=== PATIENT | female | born 1935 | race Caucasian/White ===

== ENCOUNTER 2025-06-24 09:47 | Outpatient (AMB) | payer MEDICAID, SELFPAY ==
--- NOTE | 2025-06-24 09:50 | A.OFFPC_ITS ---
Vital Signs 06/24/25 10:05 Height 5 ft 2 in Weight 186 lb BMI 34.0 BP 138/76 Blood Pressure Location Lt brachial Position Sitting Respiration 12 Pulse 91 Pulse Source Pulse Oximeter Temp 97.2 F Temp Source Oral Pulse Oximetry (%) 99 Oxygen Delivery Method Room Air Intake Visit Reasons: not walking Intake Note: New patient to establish care. Patient is looking for medical supply. Wastewater Project Engineer Required: Yes Wastewater Project Engineer Language: Greek Wastewater Project Engineer Name: Jori [id number] Allergies No Known Allergies Allergy (Verified 06/24/25 10:08) Medication List - Last Reconciled 06/24/25 by Kristal Nascimento, AUDIOLOGY TECHNICIAN-BC apixaban (Eliquis) 2.5 mg PO BID bisoprolol fumarate 5 mg PO DAILY sacubitril-valsartan 49-51 mg 1 tab PO BID Tobacco use date assessed: 06/24/25 Fall risk assessment: 2 + Falls in past year Last assessed Fall Risk: 06/24/25 Dental Screening Dental Screen Date: 06/24/25 Did you have a dental visit in the last 12 months?: No Did you have a dental problem in the last 6 months where you did not have access to dental care?: No Was dental information given to patient?: Patient declined HPI HPI Comments History of Present Illness Details [id number] Greek Wastewater Project Engineer: History of Present Illness - The patient is an 89-year-old female p resenting with the need to establish care post-relocation. Brings in records; however they are in Greek. Here to day with Son in law and Dtr - History of R femur and knee fracture r eported; 1 year ago - caused shortening. She is now wheelchair bound. Has never had treatment; does have a disc with some imaging from 2023. - Hearing difficulties and hearing aids usage but they are not working; referral to a survival specialist requested. - Based on med list has CHF and Afib. De nies cardiac complaints today. - Limited mobility & urinary incont: ne eds DME supplies. - PHQ and LUDY + Has known MDD and LUDY . Not on meds; declined help. Review of Systems - Musculoskeletal: Reports hip fracture, pain, and swelling in knee and hip. - Auditory: Reports hearing difficulties , uses hearing aids. - Cardiovascular: Reports heart issues. - Endocrine: Denies any weakness, fainti ng, or passing out episodes. Exam Seated in w/c accompanied by dtr and son in law Awake, FELY ESCALANTE Irregularly irregular CTAB, mildly dim +1-2 edema BLE Unable to appreciate pedal pulses Discussion Notes I discussed with the patient and her son-in-law about establishing care following her recent relocation. We addressed her concerns related to past medical issues, including hip fracture, hearing difficulties, and cardiac issues, all requiring specialist consultations. I advised the son-in-law about arranging referral appointments with an photographic specialist, a survival specialist, and a store promoter within our hospital system. We talked extensively about managing her medication refills at her preferred pharmacy and getting her baseline lab work done to enable continued appropriate care. The need for upd ated imaging and establishing care with new specialists was communicated clearly. Both the patient and her family were informed about the process to follow and were agreeable to the plan. I ensured they knew how to get assistance if needed during the lab and checkout process with an character impersonator provided. Assessment and Plan 1. Reported R femur and knee fracture - Orthopedic referral for evaluation and imaging. 2. Hearing difficulties - Consultation with a survival specialist . 3. Afib/CHF - Cardiology consultation for further ev aluation. - Cont all meds as is; unsure why she is on 2.5mg of eliquis and not 5mg. Will defer to Cards on this. 4. Medication refills - Process refills at [facility]. - All meds sent. 5. Blood work - Conduct baseline laboratory tests. to be done done. 6. DME supply request sent to nurses 7. MDD/LUDY monitor Patient Instructions - Attend referred consultations with a h ip/knee specialist, a heart doctor, and a hearing doctor. - occupational therapy director prescription refills at [facility], R margareterdaminh. - Complete lab work before leaving the ospital today. - Call us promptly if you have questions or need more help. - Ask for results to be mailed; declined use of portal. RTO 6 MONTHS SAWV, SOONER PRN Consent Patient was informed and verbally consented to the use of an ambient scribe for clinic note documentation during this visit. Total time spent caring for the patient today was 61 minutes. This includes time spent before the visit reviewing the chart, time spent during the visit, and time spent after the visit on documentation, reviewing laboratory results, diagnostic imaging, medications, performing a medically necessary evaluation, counseling on diagnoses, care coordination, ordering appropriate tests, ordering appropriate medications, review of tests performed by other providers, reporting test results with the patient, communication with other healthcare providers. [facility] Medical History (Updated 06/24/25 @ 10:47 by Kristal Nascimento, [facility]) Depression Headache Heart disease Imbalance Memory loss Osteoporosis Surgical History (Updated 06/24/25 @ 10:36 by Sukumar Salazar MA) No pertinent past surgical history Family History (Updated 06/24/25 @ 10:36 by Sukumar Salazar MA) Mother HTN (hypertension) Father HTN (hypertension) Cardiovascular disease Social History (Updated 06/24/25 @ 09:51 by Sukumar Salazar MA) Household Members: Family Housing: House Are you a primary animal daycare provider to a significant other at home: No Do you presently have visiting nurse or other home services: No Alcohol intake: never Patient Tobacco Use Status: Never used Tobacco e-Cigarette/Vaping Use: Never Used Second Hand Smoke Exposure: No service: No Current occupational status: retired Cognitive needs: Yes Hearing needs: Yes (hearing aide) Vision needs: Yes (eye surgery ) Questionnaire PHQ-9 Over the last 2 weeks, how often have you been bothered by any of the following problems? 1. Little interest or pleasure in doing things: nearly every day 2. Feeling down, depressed, or hopeless: not at all 3. Trouble falling or staying asleep, or sleeping too much: not at all 4. Feeling tired or having little energy: nearly every day 5. Poor appetite or overeating: more than half the days 6. Feeling bad about yourself - or that you are a failure or have let yourself or your family down: nearly every day 7. Trouble concentrating on things, such as reading the newspaper or watching television: more than half the days 8. Moving or speaking so slowly that other people could have noticed. Or the opposite - being so fidgety or restless that you have been moving around a lot more than usual: nearly every day 9. Thoughts that you would be better off or of hurting yourself in some way: not at all Total score: 16 Depression Screening Interpretation: Positive Depression Screening Follow-up: Existing condition and Declines treatment Depression Screening Done: Yes [id number] - PHQ-9 Billing: Yes Source: Developed by Drs. Se Thacker, Yeni Nevarez, Guzman Coronado and colleagues, with an educational mya from [employer]. Thrive Questionnaire Date Thrive assessed: 06/24/25 I am a: Patient What is your living situation today?: I choose not to answer this question Within the past 12 months, did the food you bought not last and you didn't have the money to get more?: I choose not to answer this question Within the past 12 months, did you worry whether your food would run out before you got money to buy more?: I choose not to answer this question Do you have trouble paying for medicines?: Yes Do you have trouble getting transportation to medical appointments?: Yes Do you have trouble paying your heating and electricity bill?: Yes Do you have trouble taking care of your child, family member or friend?: Yes Do you have trouble with day-to-day activities such as bathing, preparing meals, shopping, managing finances, etc.?: Yes Are you currently unemployed and looking for a job?: I choose not to answer this question Are you interested in more education?: I choose not to answer this question Please select the resources that you would like help with: Food, Paying for medicine, Transportation, Utilities, Care for elder or disabled and Daily support Currently or been in a relationship where the following occur: I choose not to answer THRIVE Score: 2 AUDIT C Alcohol Use Questionnaire (AUDIT-C) 1. How often do you have a drink containing alcohol?: Never 3. How often do you have six or more drinks on one occasion?: Never Total Score: 0 Score Reviewed/Action Taken: Yes LUDY-7 AMB Questionnaire LUDY-7 Date LUDY - 7 assessed: 06/24/25 Feeling nervous, anxious, or on edge: 1 = Several days Not being able to stop or control worryin = Several days Worrying too much about different things: 3 = Nearly every day Trouble relaxin = More than half the days Being so restless that it is hard to sit still: 1 = Several days Becoming easily annoyed or irritable: 2 = More than half the days Feeling afraid as if something awful might happen: 2 = More than half the days Total LUDY-7 score (0-4 normal; 5-9 mild; 10-14 moderate; 15-21 severe): 12 Source: Developed by Drs. Se Thacker, Yeni Nevarez, Guzman Coronado and colleagues, with an educational mya from [employer]. LUDY-7 Assessment Billing LUDY-7 Assessment Tool: LUDY-7 Assessment 04119 Physical exam (Primary Care) Vital Signs: Last Vital Signs Temp 97.2 F 06/24/25 10:05 Pulse 91 06/24/25 10:05 Resp 12 06/24/25 10:05 BP 138/76 06/24/25 10:05 Pulse Ox 99 06/24/25 10:05 Oxygen Delivery Method Room Air 06/24/25 10:05 BMI result Body Mass Index 34.0 Tobacco/Smoking Status: Tobacco use Status Tobacco use date assessed 06/24/25 06/24/25 09:55 Patient Tobacco Use Status Never used Tobacco 06/24/25 09:55 e-Cigarette/Vaping Use Never Used 06/24/25 09:55 PHQ-9: PHQ-9 Score PHQ-9: Total score 16 06/24/25 10:15 Depression Screening Interpretation: Positive Depression Screening Follow-up: Existing condition and Declines treatment Thrive Assessment: Date of Thrive Assessment Date Thrive assessed 06/24/25 06/24/25 09:55 Currently or been in a relationship where the following occur: I choose not to answer Coding Level of Care Code New Pt Level 5 (04186) Complex EM visit Add On G2211 Diagnoses Encounter to establish care Z76.89 Right femoral fracture S72.91XA Encounter type: sequela Femur location: unspecified portion of femur Fracture type: closed Chronic congestive heart failure, unspecified heart failure type I50.9 Heart failure type: unspecified Heart failure chronicity: chronic 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 Hearing loss type: sensorineural Laterality: bilateral Chronic pain of right knee M25.561; G89.29 Chronicity: chronic Obesity (BMI 30-39.9) E66.9 Atrial fibrillation, unspecified type I48.91 Atrial fibrillation type: unspecified 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 Urinary Incontinence type: mixed stress and urge incontinence Language barrier Z60.3; Z75.8 Physical deconditioning R53.81 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 Major depression episode severity: moderate LDUY (generalized anxiety disorder) F41.1 Laboratory exam ordered as part of routine general medical examination Z00.00 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 Additional Codes LUDY-7 Assessment Billing - LUDY-7 Assessment Tool: LUDY-7 Assessment [id number] ([id number]) PHQ-9 - 08464 - PHQ-9 Billing: Yes ([id number]) Assessment & Plan Assessment & Plan (1) Encounter to establish care: Code(s): Z76.89 - Persons encountering health services in other specified circumstances (2) Right femoral fracture: Code(s): S72.91XA - Unspecified fracture of right femur, initial encounter for closed fracture Category: Medical Qualifiers: Encounter type: sequela Femur location: unspecified portion of femur Fracture type: closed (3) CHF (congestive heart failure): Code(s): I50.9 - Heart failure, unspecified Category: Medical Qualifiers: Heart failure type: unspecified Heart failure chronicity: chronic Qualified Code(s): I50.9 - Heart failure, unspecified (4) Hearing loss: Code(s): H91.90 - Unspecified hearing loss, unspecified ear Category: Medical Qualifiers: Hearing loss type: sensorineural Laterality: bilateral Qualified Code(s): H90.3 - Sensorineural hearing loss, bilateral (5) Right knee pain: Code(s): M25.561 - Pain in right knee Category: Medical Qualifiers: Chronicity: chronic Qualified Code(s): M25.561 - Pain in right knee; G89.29 - Other chronic pain (6) Obesity (BMI 30-39.9): Code(s): E66.9 - Obesity, unspecified Category: Medical (7) Afib: Code(s): I48.91 - Unspecified atrial fibrillation Category: Medical Qualifiers: Atrial fibrillation type: unspecified Qualified Code(s): I48.91 - Unspecified atrial fibrillation (8) Urinary incontinence: Code(s): R32 - Unspecified urinary incontinence Category: Medical Qualifiers: Urinary Incontinence type: mixed stress and urge incontinence Qualified Code(s): N39.46 - Mixed incontinence (9) Language barrier: Code(s): Z60.3 - Acculturation difficulty; Z75.8 - Other problems related to medical facilities and other health care Category: Social Hx (10) Physical deconditioning: Code(s): R53.81 - Other malaise Category: Medical (11) MDD (major depressive disorder), recurrent episode: Code(s): F33.9 - Major depressive disorder, recurrent, unspecified Category: Medical Qualifiers: Major depression episode severity: moderate Qualified Code(s): F33.1 - Major depressive disorder, recurrent, moderate (12) LUDY (generalized anxiety disorder): Code(s): F41.1 - Generalized anxiety disorder Category: Medical (13) Laboratory exam ordered as part of routine general medical examination: Code(s): Z00.00 - Encounter for general adult medical examination without abnormal findings Category: Medical (14) Secondary hypercoagulable state: Comment: d/t AFib on eliquis Code(s): D68.69 - Other thrombophilia Category: Medical (15) 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 Orders: Orders Complete Blood Count no Diff Today Z00.00 - Encounter for general adult medical examination without abnormal findings Comprehensive Met. Panel Today Z00.00 - Encounter for general adult medical examination without abnormal findings Hemoglobin A1c Today Z00.00 - Encounter for general adult medical examination without abnormal findings Lipid Panel Today Z00.00 - Encounter for general adult medical examination without abnormal findings Vitamin B12 and Folate Today Z00.00 - Encounter for general adult medical examination without abnormal findings TSH reflex Free T4 Today Z00.00 - Encounter for general adult medical examination without abnormal findings Vitamin D 25-OH Total Today Z00.00 - Encounter for general adult medical examination without abnormal findings XR hip RT w PEL1V Today M25.561 - Pain in right knee, S72.91XA - Unspecified fracture of right femur, initial encounter for closed fracture XR knee RT 4V Today M25.561 - Pain in right knee, S72.91XA - Unspecified fracture of right femur, initial encounter for closed fracture Referrals Cardiology Referral I50.9 - Heart failure, unspecified Audiology Referral H91.90 - Unspecified hearing loss, unspecified ear Orthopedics Referral S72.91XA - Unspecified fracture of right femur, initial encounter for closed fracture Medications: New apixaban (Eliquis) 2.5 mg PO BID 180 tabs 0RF bisoprolol fumarate 5 mg PO DAILY 90 tabs 0RF sacubitril-valsartan 49-51 mg 1 tab PO BID 90 tabs 0RF torsemide 5 mg PO DAILY 90 tabs 0RF Patient Instructions: Walk-In Care (Urgent Care): We Make it Easy Walk-in for urgent medical issues such as: ? Seasonal Allergies ? Insect Bites ? Cough ? Diarrhea ? Acute Asthma Attacks ? Back, Knee or Joint Pain ? Ear Infection ? Fever without a Rash ? Headaches ? Nausea ? [place], Rash or Skin Irritation ? Sore Throat ? Sports Physicals ? Vomiting Most insurances are accepted. Patients do not need to be part of the [facility] to seek care at the walk-in clinic. Locations [facility] , [place] [address] ? [phone] [facility] Walk-In Care in [place] provides services to ages 18 and over. Open Friday-Friday: 8 a.m. to 5 p.m. and Friday: 9 a.m. to 3 p.m.* *Hours may vary due to staffing availability. To confirm Walk-In Care hours in [place], please call [phone]. [address] [place] [address] ? [phone] [facility] Walk-In Care in [place] provides services to ages 12 and over. Open Friday-Friday: 8 a.m. to 5 p.m. Hours may vary due to staffing availability. To confirm Walk-In Care hours in [place], please call [phone]. LABORATORY SERVICES: [facility] Lab ? Primary Location [address] [place] [address] Friday through Friday 6:00 AM ? 5:00 PM Friday 7:00 AM ? 11:00 AM* [phone] [facility] Lab is centrally located near the front entrance of the [facility] for easy outpatient access. Convenient parking is provided for outpatients. *Hours may vary due to staffing availability. To confirm Laboratory hours for any location, please call [phone]. Offsite Location For your convenience, we offer offsite laboratory draw stations at the following locations: [address] [facility], [place] ? [facility] [address], [address], [place] Friday through Friday 7:30 AM ? 1:00 PM* [phone] *Hours may vary due to staffing availability. To confirm Laboratory hours for any location, please call [phone]. [place] ? [facility] [address] [facility], [place] Friday through Friday 6:00 AM ? 3:30 PM* Friday 6:30 AM ? 3 PM* [phone] *Hours may vary due to staffing availability. To confirm Laboratory hours for a [place] location, please call [phone]. [address] [facility] Friday through Friday 7:30 AM ? 4:00 PM* [phone] *Hours may vary due to staffing availability. To confirm Laboratory hours for any location, please call [phone] [place] [address] Friday through 9:00 AM ? 4:00 PM* *Hours may vary due to staffing availability. To confirm Laboratory hours for any location, please call [phone]. Appointments are not necessary. Walk-ins are welcome. Like all the departments throughout the [facility], our Lab undergoes frequent reviews to ensure the quality and accuracy of test results, and our staff takes special pride in its status as a nationally accredited facility. Patient Portal: ONE PATIENT. ONE RECORD. BETTER CARE. [facility] has a fully integrated, cutting- edge mobile electronic health information system that has revolutionized the way we care for our patients and manage our organization. This system improves communication and coordination enabling us to provide safe, higher-quality care, and an overall positive experience for staff and patients. Our first priority, as always, is to deliver the highest quality care possible. The system is running in the background supporting that priority. This portal is for all [facility] services and practices. If you are experiencing any technical difficulties with enrolling or logging into the Patient Portal please complete the [facility] Patient Portal Technical Support Form. [facility] now offers a new secure on-line interactive tool for patients to review their health information ? ?Patient Portal. This interactive web portal will enable patients and their families to take an active role in their care by providing easy, secure access to their health information via the internet. The Patient Portal provides patients with instant access to their health information, including laboratory results, medications, allergies, demographic information, visit history, and more. In addition to managing their own care, parents and health care proxies with authorized consent will appreciate the ability to access the records of those individuals for whom they provide care. Please note: if you wish to gain access (Proxy) to another patient?s portal, you will be required to come to the Medical Records Department in person at [facility]. Both the patient giving proxy access and the proxy will need to provide photo identification and complete the appropriate authorization. The Patient Portal also allows track their appointments online. The [facility] Patient Portal also saves patients time by allowing them to submit updates to their demographic and contact information prior to their visits. Portal email notifications will also alert patients to any new activity on their portal, such as test results and new appointments. In order to initially enroll in the [facility] Patient Portal, you will need to enter some required information including the following: * your [facility] Medical Record number * your personal home email address * name * date of Please note: In order to enroll in the [facility] Patient Portal, we need to have your email address on file in your electronic medical record. ?The email address needs to be specific for one person (yourself) in order for your Portal enrollment to be successful. ?You can update your email address in person with our Registration staff when you are registering for a hospital visit. ?Otherwise, you will need to come to the Health Information Management (Medical Records) Department at [facility]. ?We are open from Friday ? Friday from 7:30 a.m. ? 4:30 p.m. ?You will be required to present a photo id. Once you have successfully enrolled in the Patient Portal, you will receive a one-time user id and password for the Portal, sent to your email address. ?This will allow you to log into the Patient Portal within 99 hrs and reset your own logon id and password, and define personal security questions. ?Once your permanent login and password have been set, you can log into the [facility] Patient Portal at any time via the blue button above or from the Portal Logon button on any page of the [facility] website. [facility] encourage all of our patients to enroll in Patient Portal as it presents a valuable opportunity for patients and their families to actively participate in their care and stay healthy Welcome to [facility]. ?We look forward to working with you.
[2025-06-24 10:05] VITALS: BP 138/76; PULSE 91; RESP 12; TEMP 36.2; O2SAT 99; BMI 34.0
== END 2025-06-24 10:35 | disposition home or self-care (01) ==
LOC: HO.HMCFM 09:48
PROVIDERS: PCP Nurse Practitioner Family; Visit Provider Nurse Practitioner Family
DX: I50.9 Heart failure, unspecified (principal); S72.91XA Unspecified fracture of right femur, initial encounter for closed fracture; I48.91 Unspecified atrial fibrillation; F33.1 Major depressive disorder, recurrent, moderate; E66.9 Obesity, unspecified; Z68.34 Body mass index [BMI] 34.0-34.9, adult; Z76.89 Persons encountering health services in other specified circumstances; H90.3 Sensorineural hearing loss, bilateral; M25.561 Pain in right knee; G89.29 Other chronic pain; N39.46 Mixed incontinence; Z60.3 Acculturation difficulty

== ENCOUNTER → 2025-06-24 09:47 | Outpatient (BNVA) | payer MEDICAID, SELFPAY | PROVIDERS: PCP Nurse Practitioner Family; Visit Provider Nurse Practitioner Family | DX: Z00.00 Encounter for general adult medical examination without abnormal findings (principal); I48.91 Unspecified atrial fibrillation; I50.9 Heart failure, unspecified; H90.3 Sensorineural hearing loss, bilateral; M25.561 Pain in right knee; G89.29 Other chronic pain; E66.9 Obesity, unspecified; N39.46 Mixed incontinence; F33.1 Major depressive disorder, recurrent, moderate; F41.1 Generalized anxiety disorder; D68.69 Other thrombophilia; E26.1 Secondary hyperaldosteronism; Z79.01 Long term (current) use of anticoagulants; Z76.89 Persons encountering health services in other specified circumstances; Z87.81 Personal history of (healed) traumatic fracture; Z60.3 Acculturation difficulty; Z75.8 Other problems related to medical facilities and other health care; Z99.3 Dependence on wheelchair; Z68.34 Body mass index [BMI] 34.0-34.9, adult | CPT/HCPCS: 96127; 99202 ==

== ENCOUNTER 2025-06-24 10:39 | Outpatient (REF) | payer SELFPAY ==
[2025-06-24 14:06] LABS: Hematocrit 29.7 % (37.0-47.0); Hemoglobin 9.1 g/dl (12.0-16.0); Mean Corpuscular HGB Conc 30.6 g/dl (31.0-35.0); Mean Corpuscular Hemoglobin 22.0 pg (27.0-33.0); Mean Corpuscular Volume 71.9 fL (80.0-98.0); NRBC Abs Auto 0.000 X10*3/uL (0.0-0.012); NRBC Pct Auto 0.0 /100WBC (0.0-0.2); Platelet Count 288 X10*3/uL (160-400); Red Blood Count 4.13 X10*6/uL (4.20-5.50); White Blood Count 6.1 X10*3/uL (4.8-10.8)
[2025-06-24 14:08] LABS: Hemoglobin A1C 80.5072 umol/L; Total Hemoglobin (HGBA1C) 2380.0019 umol/L
[2025-06-24 14:30] LABS: Alanine Aminotransferase 11 U/L (0-31); Albumin Level 4.2 g/dL (3.5-5.0); Alkaline Phosphatase 60 U/L (39-117); Anion Gap 11 (12-20); Aspartate Amino Transferase 25 U/L (5-31); Blood Urea Nitrogen 22 mg/dL (9-16); Calcium 9.5 mg/dL (8.4-10.2); Carbon Dioxide 22 mmol/L (22-29); Chloride 111 mmol/L (96-108); Cholesterol 160 mg/dL (<200); Estimated Glomerular Filt Rate > 60; HDL Cholesterol 55 mg/dL (>40); Potassium 4.3 mmol/L (3.3-5.1); Sodium 140 mmol/L (135-145); Total Protein 7.2 g/dL (6.5-8.0); Triglycerides 61 mg/dL (<150)
[2025-06-24 14:46] LABS: Folate 10.0 ng/mL (> or = 4.0); Vitamin B12 667 pg/mL (200-900)
== END 2025-06-24 10:40 | disposition home or self-care (01) ==
LOC: HO.WFDLDS 10:39
PROVIDERS: Visit Provider Nurse Practitioner Family
DX: Z00.00 Encounter for general adult medical examination without abnormal findings (principal)
CPT/HCPCS: 36415; 80053; 80061; 82306; 82607; 82746; 83036; 84443; 85027

== ENCOUNTER 2025-08-23 15:40 | Outpatient (REF) | payer MEDICAID, SELFPAY | END 2025-08-23 15:41 | disposition home or self-care (01) | LOC: HO.SH 15:40 | PROVIDERS: Visit Provider Nurse Practitioner Family | DX: Z01.118 Encounter for examination of ears and hearing with other abnormal findings (principal); H90.6 Mixed conductive and sensorineural hearing loss, bilateral | CPT/HCPCS: 92553; 92567 ==

== ENCOUNTER 2025-09-28 12:42 | Emergency (ER) | payer MEDICAID, SELFPAY ==
--- NOTE | 2025-09-28 | ECG_ITS ---
Test Reason : cp Blood Pressure : */* mmHG Vent. Rate : 65 BPM Atrial Rate : * BPM P-R Int : * ms QRS Dur : 94 ms QT Int : 496 ms P-R-T Axes : * 6 14 degrees QTcB Int : 515 ms Atrial fibrillation Incomplete right bundle branch block Abnormal ECG No previous ECGs available Referred By: Generic ED Physician Electronically Signed By: URVASHI MEYERS
--- NOTE | ~2025-09-28 | CT_ITS ---
EXAMINATION: CT HEAD WITHOUT CONTRAST CLINICAL INFORMATION: dizziness COMPARISON: None available. TECHNIQUE: Contiguous axial imaging was performed from the skull base to vertex without intravenous administration of contrast. This CT examination was performed using dose optimization techniques as appropriate, variously including the following: *Automated exposure control *Adjustment of mA and/or kV according to patient size (this includes techniques or standardized protocols for targeted exams where dose is matched to indication/reason for exam; i.e. extremities or head) *Use of iterative reconstruction technique DLP: 05/20/2019 mGy-cm FINDINGS: No acute intracranial hemorrhage, mass effect, midline shift, hydrocephalus or herniation. [place]-white matter differentiation is normal. Prominence of the extra-axial CSF spaces cerebral sulci and ventricles. Posterior cranial fossa contents demonstrated no gross hemorrhage or mass effect. Normal position of the cerebellar tonsils. Sellar/suprasellar region demonstrated no gross masses. Calcified plaques in the cavernous supracavernous segments both ICAs. Mild patchy deep periventricular white matter hypodensity. No gross masses or fluid collections in the intraconal or extraconal compartments of the orbits. Mucosal thickening and dorsalis. Effervescent secretions in the left saphenous sinus. Tympanic cavities are aerated. Poor pneumatization of the right mastoid air cells. No acute fracture in the bony calvarium. CT/CT head/brain wo IV con IMPRESSION: No acute intracranial hemorrhage. Global cerebral atrophy. Consider small vessel disease. Atherosclerosis disease, intracranial. Electronically signed by: Junior Vaca MD 09/28/2025 03:10 PM EDT
--- NOTE | ~2025-09-28 | CT_ITS ---
EXAMINATION: CT ABDOMEN AND PELVIS WITH CONTRAST CLINICAL INFORMATION: Upper abdominal pain, R/O AAA Known history of right femur and knee fracture according to the MR nodes. COMPARISON: None available. TECHNIQUE: Multidetector volumetric images were obtained from the superior aspect of the liver through the pubic symphysis following administration 85 cc of Omnipaque 350 intravenous contrast. Sagittal and coronal reformatted images were obtained on the technologist's workstation. Oral contrast: No This CT examination was performed using dose optimization techniques as appropriate, variously including the following: *Automated exposure control *Adjustment of mA and/or kV according to patient size (this includes techniques or standardized protocols for targeted exams where dose is matched to indication/reason for exam; i.e. extremities or head) *Use of iterative reconstruction technique FINDINGS: Respiratory motion degrades images. LOWER CHEST: No focal consolidation. No pleural effusion. LIVER: No focal lesion. GALLBLADDER AND BILIARY TREE: Nondistended gallbladder. No biliary ductal dilatation. PANCREAS: Unremarkable. SPLEEN: Top normal spleen measuring 12.8 cm. No focal lesions. ADRENAL GLANDS: Thickening of bilateral adrenal glands. KIDNEYS AND URETERS: Multiple bilateral hypodense renal lesions, the majority probably representing cysts. No hydronephrosis or renal stones on either side. GASTROINTESTINAL TRACT: Small hiatal hernia. No bowel distention to suggest obstruction. Numerous diverticula throughout the colonic loops. Rectum is filled with moderate amount of stool. PERITONEUM/RETROPERITONEUM: No free fluid or free air. ABDOMINAL WALL: Small fat-containing umbilical hernia. LYMPH NODES: No bulky lymphadenopathy. VASCULAR: No abdominal aortic aneurysm. Moderate atherosclerotic disease associated with large amount of calcifications. PELVIC VISCERA: Urinary bladder is partially distended. Enlarged uterus with lobulated contours. OSSEOUS STRUCTURES: Displaced ununited chronic fracture of the right femoral head/neck with shortening of the right lower extremity. Chronic appearing anterior wedge deformity of T11 vertebral body. No acute fractures. CT/CT abdomen pelvis w IV con IMPRESSION: 1. No abdominal aortic aneurysm. Moderate atherosclerotic disease with calcifications. 2. Colonic diverticulosis. 3. Enlarged uterus, incompletely evaluated. Correlate with prior images/pelvic examination. 4. Chronic displaced ununited right femoral fracture. Electronically signed by: Winston Mitchell MD 09/28/2025 04:43 PM EDT
[2025-09-28 13:25] VITALS: BP 160/100; BP 165/50; PULSE 70; PULSE 75; RESP 16; TEMP 36.3; O2SAT 95; O2SAT 99; BMI 33.7
--- NOTE | 2025-09-28 13:56 | ED_ITS ---
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 Blanco HPI narrative: 89-year-old Malagasy-speaking female came in with her family by EMS for evaluation of epigastric burning sensation and chest pain accompanied with dizziness and feeling of room spinning associated with nausea and vomiting it is often for the patient after she eats get burning sensation in her chest and upper abdomen but the dizziness and vomiting is new. Patient otherwise declined any neurological deficit or weakness, no loss of sensation, patient took a nap in the emergency department felt better after she took a nap, with improvement of the dizziness and her symptoms. Related Data Previous Rx's ?Medication ?Instructions ?Recorded apixaban 2.5 mg tablet (Eliquis) 2.5 mg PO BID #180 ta 06/24/25 bisoprolol fumarate 5 mg tablet 5 mg PO DAILY #90 tabs 06/24/25 ferrous gluconate 240 mg (27 mg 240 mg PO DAILY #90 ta bs 06/24/25 iron) tablet sacubitril 49 mg-valsartan 51 mg 1 tab PO BID #90 tabs 06/24/25 tablet torsemide 5 mg tablet 5 mg PO DAILY #90 tabs 06/24 bedside commode #1 06/28/25 front wheeled walker #1 06/28/25 incontinence briefs #90 ea 06/28/25 manual wheelchair #1 ea 06/28/25 reusable incontinence bed pad #15 ea 06/28/25 [employer] underpad simplicity #240 09/09/25 Medline Contour Prot plus brief #150 09/09/25 cefuroxime axetil 250 mg tablet 250 mg PO BID #20 tabs 09/28/25 omeprazole magnesium 20 mg 20 mg PO DAILY #14 tabs tablet,delayed release (Prilosec OTC) Allergies Allergy/AdvReac Type Severity Reaction Status Date / Time No Known Allergies Allergy Verified 09/28/25 13:28 Review of Systems 2 Review of Systems: All other systems are reviewed and are negative Constitutional: Reports as per HPI and Reports no additional constitutional complaints Eyes: Reports as per HPI and Reports no additional eye complaints Reports system reviewed and no additional complaints, except as documented Cardiovascular: Reports as per HPI and Reports no additional cardiovascular complaints Respiratory: Reports as per HPI and Reports no additional respiratory complaints Gastrointestinal: Reports as per HPI and Reports no additional gastrointestinal complaints Genitourinary: Reports no additional female genitourinary complaints Musculoskeletal: Reports no additional musculoskeletal complaints Skin/Breast: Reports system reviewed and no additional complaints, except as docu Psychiatric: Reports no additional psychiatric complaints Endocrine: Reports no additional endocrine complaints Hematologic/Lymphatic: Reports no additional hematologic/lymphatic complaints Allergic/Immunologic: Reports no additional allergic/immunologic complaints Reports system reviewed and no additional complaints, except as documented and Reports Abnormal speech present [facility] Past Medical History Medical History Depression Imbalance Memory loss Headache Osteoporosis Heart disease Surgical History No pertinent past surgical history Family History Family History Mother HTN (hypertension) Father HTN (hypertension) Cardiovascular disease Social History Social History Household Members: Family Housing: House Are you a primary child care group leader to a significant other at home: No Do you presently have visiting nurse or other home services: No Alcohol intake: never Patient Tobacco Use Status: Never used Tobacco Smoked in Last 30 Days: No e-Cigarette/Vaping Use: Never Used Second Hand Smoke Exposure: No Use of substances other than those prescribed or required for medical reasons: No Advance Directives: No Advance Directives Information Provided: Yes Do you have a plan to hurt others: No Plan service: No Current occupational status: retired Cognitive needs: Yes Hearing needs: Yes (hearing aide) Vision needs: Yes (eye surgery ) Physical Exam 2 Vital Signs: Vital Signs: Last Vital Signs Temp 97.4 F 09/28/25 13:25 Pulse 71 09/28/25 16:43 Resp 16 09/28/25 16:43 BP 171/80 H 09/28/25 16:43 Pulse Ox 96 09/28/25 16:43 O2 Del Method Room Air 09/28/25 16:43 BMI result Body Mass Index 33.7 Vital signs have been reviewed and appear to be correct. Blood pressure elevated. Heart rate normal. Respiratory rate normal. Temperature normal. Oxygen saturation normal. Appearance: Alert. Oriented X3. No acute distress. Head: Normal external exam. Normocephalic. Atraumatic. No Delgado signs noted. No raccoon eyes noted Eyes: PERRLA. EOMI. Conjunctiva and sclera normal. Eyelids normal. ENT: TM's Normal. Pharynx normal. Uvula midline. Moist mucous membranes. No trismus noted. No drooling noted. No muffled voice noted. Neck: Normal inspection. Neck supple. FROM. No adenopathy. Thyroid Normal. No meningeal signs. No neck mass noted. CVS: Normal heart rate and rhythm. Heart sound normal. No murmurs noted. Pulses normal throughout. Respiratory: No respiratory distress. Painless inspiration. Breath sounds normal. No wheezes/rales/rhonchi noted. Chest nontender. No accessory muscle usage noted or decreased air movement noted. Abdomen: Soft , epigastric mild tenderness, no guarding, no rebound tenderness. Bowel sounds normal in all 4 quadrants. No distention noted. No organomegaly noted. No visible injury noted. Back: No CVA tenderness. Full range of motion noted. Skin: Skin warm and dry. Normal skin color. Normal skin turgor. No rashes/lesions/lacerations noted. Extremities: No lower extremity edema. Extremities exhibit normal range of motion. Extremities nontender. Neuro: Mental status: Normal attention, orientation, memory, and affect. Cranial nerves: Pupils are equal, round and reactive to light, EOMI, visual castro are fall, face is symmetric, facial sensations are normal. Motor examination normal muscle tone, strength to 4 extremities. DTR are +2, planter's are flexor. Sensory exam; normal coordination, no ataxia, gait stable. Cerebellar exam: Uuceoh-es-usvc and newl-vm-[id number] is normal. Extrapyramidal system: No tremors, no rigidity with normal facial expressions. Pronator drift not present Course Reevaluation(s) Reevaluation #1: Able to tolerate p.o. intake, no nausea, no vomiting, improvement of the abdominal pain, findings today are consistent with UTI otherwise negative workup for the chest pain and abdominal pain. Repeat abdominal exam reveals no epigastric tenderness. Normal neuro exam now with no symptoms of dizziness and negative head CT. Will start on PPI. Time: 19:19 Medications Administered Discontinued Medications Generic Name Dose Route Start Last Admin Trade Name Beatriz PRN Reason Stop Dose Admin Al Hydroxide/Mg Hydroxide 30 ml 09/28/25 13:52 09/28/25 14:38 Magnesium Hydrox/Alum Hydrox 30 Ml Oral.Susp PO 09/28/25 13:53 30 ml ONCE ONE Administration Famotidine 20 mg 09/28/25 13:52 09/28/25 14:05 Famotidine/Pf 20 Mg/2 Ml Vial IVPUSH 09/28/25 13:53 20 mg ONCE ONE Administration Iohexol 100 ml 09/28/25 16:11 09/28/25 16:11 Iohexol 350 Mg/Ml 100 Ml Infus..Btl IV 09/28/25 16:12 85 ml ONCE ONE Administration Ondansetron HCl 4 mg 09/28/25 13:52 09/28/25 14:05 Ondansetron Hcl 4 Mg/2 Ml Vial IVPUSH 09/28/25 13:53 4 mg ONCE ONE Administration Sucralfate 1 gm 09/28/25 13:52 09/28/25 14:38 Sucralfate Oral Suspension 1 Gm/10 Ml Oral.Susp PO 09/28/25 13:53 1 gm ONCE ONE Administration Medical Decision Making Differential Diagnosis Differential Diagnoses: The differential diagnosis associated with the presentation includes (Gastritis, pancreatitis, colitis, diverticulitis, small- bowel obstruction, acute appendicitis, ACS, intracranial bleed, ischemic stroke, GERD.) Admission/Observation Consideration of admission/observation: Escalation of care including admission/observation considered Lab Data MDM Lab Attestation statement: I reviewed the patient's lab results. 09/28/25 14:19 09/28/25 15:25 Labs: Lab Results 09/28/25 09/28/25 Range/Units 14:19 15:25 WBC 8.6 (4.8-10.8) X10*3/uL RBC 4.71 (4.20-5.50) X10*6/uL Hgb 12.9 D (12.0-16.0) g/dl Hct 41.9 D (37.0-47.0) % MCV 89.0 (80.0-98.0) fL MCH 27.4 (27.0-33.0) pg MCHC 30.8 L (31.0-35.0) g/dl RDW 17.1 H (11.0-16.0) % Plt Count 218 (160-400) X10*3/uL MPV 10.3 (9.4-12.3) fL Immature Gran % (Auto) 0.7 H (0.0-0.4) % Neut % (Auto) 85.4 H (45-73) % Lymph % (Auto) 8.9 L (20-40) % [place] % (Auto) 4.3 (2-11) % Eos % (Auto) 0.1 (0-4) % Baso % (Auto) 0.6 (0-2) % Lymph # (Auto) 0.8 L (1.2-4.9) X10*3/uL [place] # (Auto) 0.4 (0.1-1.2) X10*3/uL Eos # (Auto) 0.0 (0.0-0.4) X10*3/uL Baso # (Auto) 0.1 (0.0-0.2) X10*3/uL Abs Immat Gran (auto) 0.06 H (0.00-0.03) X10*3/uL Absolute Neuts (auto) 7.3 (2.0-8.3) x10*3/uL Absolute Nucleated RBC 0.000 (0.0-0.012) X10*3/uL Nucleated RBC % (auto) 0.0 (0.0-0.2) /100WBC Smear Tech's Comments VERIFIED Sodium 140 (135-145) mmol/L Potassium 4.4 (3.3-5.1) mmol/L Chloride 108 (96-108) mmol/L Carbon Dioxide 24 (22-29) mmol/L Anion Gap 12 (12-20) BUN 22 H (9-16) mg/dL Creatinine 0.62 (0.5-1.4) mg/dL Estim Creat Clear Calc 65.2 Estimated GFR > 60 Random Glucose 147 H (60-115) mg/dL Calcium 9.5 (8.4-10.2) mg/dL Total Bilirubin 0.6 (0.0-1.0) mg/dL Direct Bilirubin 0.3 (0.0-0.5) mg/dL AST 34 H (5-31) U/L ALT 24 (0-31) U/L Alkaline Phosphatase 67 (39-117) U/L Troponin I High Sens 4.8 (<3.5-17.0) ng/L Total Protein 7.4 (6.5-8.0) g/dL Albumin 4.5 (3.5-5.0) g/dL Lipase 24 (8-78) U/L Urine Color Yellow Urine Appearance Clear Urine pH 5.5 (5.0-9.0) Ur Specific [place] 1.015 (1.005-1.025) Urine Protein 30 (1+) H (Neg-Trace) mg/dL Urine Glucose (UA) Negative (Negative) mg/dL Urine Ketones Negative (Negative) mg/dL Urine Blood Moderate (2+) H (Negative) Urine Nitrite Positive H (Negative) Ur Leukocyte Esterase Moderate (2+) H (Negative) Urine RBC 3-5 H (0-2) /HPF Urine WBC 21-50 (0-5) /HPF Ur Squamous Epith Cells 0-2 (0-2) /HPF Urine Bacteria 4+ (None Seen) Hyaline Casts 0-2 (0-2) /LPF Independent Interpretation I performed an independent interpretation of an: CT Scan (Head/abdomen/pelvis: No acute intracranial pathology,. No abdominal aortic aneurysm. Moderate atherosclerotic disease with calcifications. 2. Colonic diverticulosis. 3. Enlarged uterus, incompletely evaluated. Correlate with prior images/pelvic examination. 4. Chronic displaced ununited right) Radiology Impression Discussion of test interpretation with radiology: I have reviewed the radiologist's reading. Discharge Plan Discharge Clinical Impression: Acute UTI Patient Disposition: Home, Self-Care Instructions: Urinary Tract Infection in Women (ED) Additional Instructions: Drink plenty of fluids. Prescriptions: New cefuroxime axetil 250 mg tablet 250 mg PO BID Qty: 20 0RF omeprazole magnesium [Prilosec OTC] 20 mg tablet,delayed release (DR/EC) 20 mg PO DAILY Qty: 14 0RF No Action (DME) bedside commode See Rx Instructions .Route .MEDSUPPLY Qty: 1 0RF Rx Instructions: As directed (DME) front wheeled walker See Rx Instructions .Route .MEDSUPPLY Qty: 1 0RF Rx Instructions: As directed (DME) incontinence briefs adult See Rx Instructions .Route .MEDSUPPLY Qty: 90 5RF Rx Instructions: As directed (DME) manual wheelchair See Rx Instructions .Route .MEDSUPPLY Qty: 1 0RF Rx Instructions: As directed (DME) reusable incontinence bed pad See Rx Instructions .Route .MEDSUPPLY Qty: 15 0RF Rx Instructions: As directed (DME) [employer] underpad simplicity 24 x 36 See Rx Instructions .Route .MEDSUPPLY Qty: 240 2RF Rx Instructions: As directed (DME) Medline Contour Prot plus brief large See Rx Instructions .Route .MEDSUPPLY Qty: 150 2RF Rx Instructions: As directed Eliquis 2.5 mg tablet 2.5 mg PO BID Qty: 180 0RF bisoprolol fumarate 5 mg tablet 5 mg PO DAILY Qty: 90 0RF sacubitril-valsartan 49-51 mg tablet 1 tab PO BID Qty: 90 0RF torsemide 5 mg tablet 5 mg PO DAILY Qty: 90 0RF ferrous gluconate 240 mg (27 mg iron) tablet 240 mg PO DAILY Qty: 90 2RF Referrals: Kristal Nascimento, [employer] [Primary Care Provider, Internal Medicine] Print Language: Malagasy
[2025-09-28 14:00] VITALS: BP 153/70; PULSE 70; RESP 16; O2SAT 99
--- NOTE | 2025-09-28 14:07 | PC.NURSE ---
Pt still nauseous. Will try PO medications after IV antiemetics given and have taken effect.
[2025-09-28 14:31] LABS: Hematocrit 41.9 % (37.0-47.0); Hemoglobin 12.9 g/dl (12.0-16.0); Imm Gran Abs Auto 0.06 X10*3/uL (0.00-0.03); Imm Gran Pct Auto 0.7 % (0.0-0.4); Lymphocytes Absolute Auto 0.8 X10*3/uL (1.2-4.9); MANUAL DIFF FLAG SCAN; Mean Corpuscular HGB Conc 30.8 g/dl (31.0-35.0); Mean Corpuscular Hemoglobin 27.4 pg (27.0-33.0); Mean Corpuscular Volume 89.0 fL (80.0-98.0); NRBC Abs Auto 0.000 X10*3/uL (0.0-0.012); NRBC Pct Auto 0.0 /100WBC (0.0-0.2); Platelet Count 218 X10*3/uL (160-400); Red Blood Count 4.71 X10*6/uL (4.20-5.50); SCAN SMEAR FLAG 1; White Blood Count 8.6 X10*3/uL (4.8-10.8)
[2025-09-28] MEDS: Sucralfate Oral Suspension 1 GM/10 ML ORAL.SUSP PO (14:38)
[2025-09-28] MEDS: Magnesium Hydrox/Alum Hydrox 30 ML ORAL.SUSP PO (14:38)
[2025-09-28 15:33] LABS: Appearance Urine Clear; Glucose Urine UA Negative (Negative); PH 5.5 (5.0-9.0); Specific Gravity - Urine 1.015 (1.005-1.025); UMIC TRIGGER UACC YES
[2025-09-28 15:44] LABS: Alanine Aminotransferase 24 U/L (0-31); Albumin Level 4.5 g/dL (3.5-5.0); Alkaline Phosphatase 67 U/L (39-117); Anion Gap 12 (12-20); Aspartate Amino Transferase 34 U/L (5-31); Blood Urea Nitrogen 22 mg/dL (9-16); Calcium 9.5 mg/dL (8.4-10.2); Carbon Dioxide 24 mmol/L (22-29); Chloride 108 mmol/L (96-108); Creatinine Clr Calc Pharmacy 65.2; Estimated Glomerular Filt Rate > 60; Lipase 24 U/L (8-78); Potassium 4.4 mmol/L (3.3-5.1); Sodium 140 mmol/L (135-145); Total Protein 7.4 g/dL (6.5-8.0)
[2025-09-28 15:48] LABS: UACC Culture Trigger YES
[2025-09-28 15:51] LABS: Troponin-I High Sensitivity 4.8 ng/L (<3.5-17.0)
[2025-09-28] MEDS: iohexoL 350 MG/ML 100 ML INFUS..BTL IV (16:11)
[2025-09-28 16:43] VITALS: BP 171/80; PULSE 71; RESP 16; O2SAT 96
[2025-09-28 19:43] LABS: Troponin-I High Sensitivity 7.0 ng/L (<3.5-17.0)
[2025-09-28 20:17] VITALS: BP 171/80; PULSE 71; RESP 16; TEMP 36.8; O2SAT 96
== END 2025-09-28 20:18 | disposition home or self-care (01) ==
PROVIDERS: Emergency Provider Emergency Medicine; PCP Nurse Practitioner Family
DX: N39.0 Urinary tract infection, site not specified (principal); R07.9 Chest pain, unspecified; R10.10 Upper abdominal pain, unspecified; R42 Dizziness and giddiness; R11.2 Nausea with vomiting, unspecified
CPT/HCPCS: 36415; 70450; 74177; 80048; 80076; 81001; 83690; 84484; 85025; 87086; 87088; 87186; 93005; 96374; 96375; 99284; 99285; J1308; J2405; Q9967

== ENCOUNTER → 2025-09-28 12:52 | Outpatient (BNV) | payer MEDICAID, SELFPAY | PROVIDERS: Emergency Provider Emergency Medicine; PCP Nurse Practitioner Family; Visit Provider Internal Medicine | DX: I48.91 Unspecified atrial fibrillation (principal); I45.10 Unspecified right bundle-branch block | CPT/HCPCS: 93010 ==

== ENCOUNTER → 2025-09-28 13:56 | Outpatient (BNV) | payer MEDICAID, SELFPAY | PROVIDERS: Emergency Provider Emergency Medicine; PCP Nurse Practitioner Family; Visit Provider Radiology Diagnostic Radiology | DX: K57.30 Diverticulosis of large intestine without perforation or abscess without bleeding (principal); N85.2 Hypertrophy of uterus; S72.141A Displaced intertrochanteric fracture of right femur, initial encounter for closed fracture; I25.84 Coronary atherosclerosis due to calcified coronary lesion; R42 Dizziness and giddiness; G31.9 Degenerative disease of nervous system, unspecified; I67.2 Cerebral atherosclerosis | CPT/HCPCS: 70450; 74177 ==

== ENCOUNTER 2025-10-20 13:38 | Outpatient (AMB) | payer MEDICAID, SELFPAY ==
--- NOTE | 2025-10-20 13:50 | A.OFFVIS_ITS ---
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 Intake Note: New patient dx afib and CHF c/o leg swelling Customer Experience Analyst Required: Yes Customer Experience Analyst Services: Customer Experience Analyst Present Customer Experience Analyst Name: jong Search Consultant: Search Consultant Present Accompanied by: Son Allergies No Known Allergies Allergy (Verified 09/28/25 13:28) Medication List - Last Reconciled 10/20/25 by Thanh Bean MD apixaban (Eliquis) 2.5 mg PO BID [bedside commode As directed] bisoprolol fumarate 5 mg PO DAILY ferrous gluconate 240 mg PO DAILY [front wheeled walker As directed] [incontinence briefs As directed] [manual wheelchair As directed] [[employer] underpad simplicity As directed] [Medline Contour Prot plus brief As directed] omeprazole magnesium (Prilosec OTC) 20 mg PO DAILY [reusable incontinence bed pad As directed] sacubitril-valsartan 49-51 mg 1 tab PO BID torsemide 5 mg PO DAILY HPI Comments Details: Ambar was referred here for management of what appears to be atrial fibrillation and congestive heart failure. History was obtained with help of a Turkish clinical documentation consultant in the room but despite that the history taking had lot of barriers as patient does not participate much in giving history as she is hard of hearing and could not understand clinical documentation consultant. History was obtained from the family. They also had records from [place] which were not in [place]. 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 Patient also labeled to have ischemic heart disease. Not sure if she had cardiomyopathy process. Patient is on medications for heart failure with reduced ejection fraction including Entresto, bisoprolol and torsemide therapy. Patient at current time denies any symptoms of orth opnea, PND, palpitations. No chest pain. There was no lightheadedness, syncope. She is pretty much wheelchair-bound and not able to move because of a fracture in his right femur about a year ago which was not repaired in [place]. She is now moved to [facility] and lives with her daughter and son-in-law. She is taking all her medications regularly. There has been no bleeding issues or neurologic events. Most recent renal function is within normal limits. [facility], [facility] Medical History Depression Imbalance Memory loss Headache Osteoporosis Heart disease Surgical History No pertinent past surgical history Family History Mother HTN (hypertension) Father HTN (hypertension) Cardiovascular disease Social History Household Members: Family Both parents involved: No Caregiver staying overnight: No Housing: House Are you a primary managed care specialist to a significant other at home: No Do you presently have visiting nurse or other home services: No 75 years or older and lives alone: No Alcohol intake: never Patient Tobacco Use Status: Never used Tobacco e-Cigarette/Vaping Use: Never Used Second Hand Smoke Exposure: No service: No Current occupational status: retired Cognitive needs: Yes Hearing needs: Yes (hearing aide) Vision needs: Yes (eye surgery ) Review of Systems Const Denies chills, Denies fatigue, Denies fever(s), Denies frequent falls, Denies weakness, Denies weight gain and Denies weight loss ENT Denies dizziness Card Denies chest pain, Denies leg edema, Denies lightheadedness, Denies palpitations, Denies dyspnea, Denies dyspnea on exertion, Denies orthopnea and Denies other (loss of consciousness) Resp Denies cough, Denies dyspnea and Denies dyspnea on exertion GI Denies hematochezia and Denies change in stool character Musc Denies abnormal gait, Denies muscle weakness, Denies numbness, Denies radiating pain into limb and Denies tingling Neuro Denies abnormal gait, Denies dizziness, Denies frequent falls, Denies numbness, Denies tingling and Denies weakness Endo Denies fatigue and Denies palpitations Physical Exam Vital Signs: Last Vital Signs Pulse 72 10/20/25 13:51 BP 146/84 H 10/20/25 13:51 Const General: cooperative, comfortable, no acute distress, alert and awake Nutritional Appearance: overweight Limitations: wheelchair HEENT Head: Yes normocephalic and Yes atraumatic Neck Neck: Yes trachea midline, Yes supple and Yes no JVD Resp Effort & Inspection: normal respiratory effort Auscultation: clear to auscultation bilaterally Cardio Jugular venous distension: no JVD Rhythm: abnormal rhythm irregularly irregular Heart sounds: S1 normal heart sound present, S2 normal heart sound present, no click, no gallops, no murmurs and no rubs GI Auscultation: normal bowel sounds Skin General skin exam: no rashes or lesions noted Neuro General: no focal motor deficits Extrem General: Yes no clubbing, cyanosis or edema Office Procedures EKG Details: EKG shows atrial fibrillation with incomplete right bundle-branch block 61658-[id number], Complete Assessment & Plan Assessment & Plan (1) CHF (congestive heart failure): Code(s): I50.9 - Heart failure, unspecified Category: Medical Qualifiers: Heart failure type: unspecified Heart failure chronicity: chronic Qualified Code(s): I50.9 - Heart failure, unspecified Plan: Heart failure syndrome currently on torsemide, clinically euvolemic and well compensated. Unclear as to her LV ejection fraction. She is on medications that I usually use for heart failure with reduced ejection fraction. Unclear whether she has underlying coronary artery disease as some of the notes from [place] mentioned that she has ischemic heart disease. Patient does not recall having prior myocardial infarction. Currently on good medical therapy with bisoprolol as well as Entresto therapy and clinically appears to be euvolemic well compensated. Continue current diuretic dose. We discussed heart failure management including daily weight monitoring avoidance salt loading. Additional diuretics as need be. Goals of therapy were discussed. Will obtain baseline blood work including NT pro BNP, BNP and chest x-ray. Will also obtain an echocardiogram near future to assess LV systolic and diastolic function and to evaluate for pulmonary hypertension, overall to establish prognosis. Given her functional status and advanced age management will be conservative and this was discussed with patient's family and they understand. (2) Afib: Code(s): I48.91 - Unspecified atrial fibrillation Category: Medical Qualifiers: Atrial fibrillation type: unspecified Qualified Code(s): I48.91 - Unspecified atrial fibrillation Plan: Atrial fibrillation which appears to be chronic at least 3 years. Might be contributing to overall heart failure syndrome. Her heart rate is well controlled on bisoprolol therapy. Given the chronicity of atrial fibrillation will pursue rate control. He is on Eliquis therapy although at not appropriate dose. Given her weight and normal renal function she should be on 5 mg of Eliquis twice a day. This was discussed with the family. Prescription has been provided. Quarterly renal function test should be pursued. Will follow up in the clinic in 6 months time, sooner PRN. Thank you for allowing me to partake in his care. Orders: Orders CA echo transthoracic complete Today I50.9 - Heart failure, unspecified NT Pro B Type Natriuretic Pept Today I50.9 - Heart failure, unspecified XR chest 2V Today I50.9 - Heart failure, unspecified Basic Metabolic Panel Today I50.9 - Heart failure, unspecified Medications: New apixaban (Eliquis) 5 mg PO BID 60 tabs 5RF I50.9 - Heart failure, unspecified Discontinued apixaban (Eliquis) Discontinued Reason: Doctor's Order 2.5 mg PO BID 180 tabs 0RF Coding Level of Care Code Complex visit Add On G2211 Diagnoses Chronic congestive heart failure, unspecified heart failure type I50.9 Heart failure type: unspecified Heart failure chronicity: chronic Atrial fibrillation, unspecified type I48.91 Atrial fibrillation type: unspecified CPT Codes EKG - CPT: 35829-[id number], Complete ([id number])
[2025-10-20 13:51] VITALS: BP 146/84; PULSE 72
== END 2025-10-20 14:34 | disposition home or self-care (01) ==
LOC: HO.HCS 13:39
PROVIDERS: Visit Provider Internal Medicine Cardiovascular Disease
DX: I50.9 Heart failure, unspecified (principal); I48.91 Unspecified atrial fibrillation
CPT/HCPCS: 93010

== ENCOUNTER 2025-10-20 13:38 | Outpatient (REF) | payer MEDICAID, SELFPAY ==
--- NOTE | ~2025-10-20 | XR_ITS ---
EXAMINATION: XR CHEST CLINICAL INFORMATION: I50.9 - Heart failure, unspecified COMPARISON: None available. TECHNIQUE: AP and lateral views FINDINGS: Pulmonary reticular pattern with superimposed mild interstitial lung edema. Blunting of the posterior costophrenic angle seen on the lateral projection is not clear/probably subpulmonic on the AP projection. No pneumothorax. No gross consolidation. Cardiomediastinal silhouette size is prominent/enlarged. Multilevel thoracolumbar spondylosis and kyphotic deformity mid thoracic spine. Osteopenia versus osteoporosis. Degenerative changes in the shoulders.. XR/XR chest 2V IMPRESSION: Concerning mild interstitial lung edema and probably subpulmonic small volume pleural effusion with cardiomegaly versus pericardial effusion. Findings communicated to the requesting physician Dr. Thanh Hale via [employer] on October 20, 2025 at 3:08 PM Electronically signed by: Junior Vaca MD 10/20/2025 03:10 PM [facility] [place]
[2025-10-20 15:56] LABS: Anion Gap 14 (12-20); Blood Urea Nitrogen 21 mg/dL (9-16); Calcium 9.9 mg/dL (8.4-10.2); Carbon Dioxide 26 mmol/L (22-29); Chloride 107 mmol/L (96-108); Estimated Glomerular Filt Rate > 60; Potassium 4.6 mmol/L (3.3-5.1); Sodium 142 mmol/L (135-145)
[2025-10-20 16:04] LABS: NT Pro B Type Natriuretic Pept 1625.6 pg/mL (<300)
== END 2025-10-20 13:39 | disposition home or self-care (01) ==
LOC: HO.LAB 13:38
PROVIDERS: PCP Nurse Practitioner Family; Visit Provider Internal Medicine Cardiovascular Disease
DX: I50.22 Chronic systolic (congestive) heart failure (principal); I48.91 Unspecified atrial fibrillation; Z79.01 Long term (current) use of anticoagulants; Z79.899 Other long term (current) drug therapy
CPT/HCPCS: 36415; 71046; 80048; 83880; 93005

== ENCOUNTER → 2025-10-20 14:48 | Outpatient (BNV) | payer MEDICAID, SELFPAY | PROVIDERS: PCP Nurse Practitioner Family; Visit Provider Radiology Diagnostic Radiology | DX: I50.9 Heart failure, unspecified (principal) | CPT/HCPCS: 71046 ==

== ENCOUNTER 2025-10-28 09:54 | Outpatient (REF) | payer MEDICAID, SELFPAY ==
--- NOTE | ~2025-10-28 | XR_ITS ---
EXAMINATION: XR HIP, RIGHT CLINICAL INFORMATION: S72.91XA - Unspecified fracture of right femur, initial encounter for cl... COMPARISON: Previous CT of the abdomen and pelvis August 2025 TECHNIQUE: Two views of the right hip. 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 There is superior displacement of the right femoral trochanteric region and shaft with respect to the head. This appears unchanged from prior CT August 2025. No acute fracture. Mild arthritis of the left hip joint. Bones of the pelvis are unremarkable. Degenerative changes of the spine. Mild atherosclerotic disease. 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 No acute fracture. Electronically signed by: Fariba Dietrich MD 10/28/2025 10:37 AM [facility]
--- NOTE | ~2025-10-28 | XR_ITS ---
EXAMINATION: XR KNEE, RIGHT CLINICAL INFORMATION: S72.91XA - Unspecified fracture of right femur, initial encounter for cl... COMPARISON: None available. TECHNIQUE: Four views of the right knee. FINDINGS: Bone alignment is normal. No acute fracture or dislocation. Osteopenia.Broad-based bony excrescence projecting off the medial femoral condyle measuring 2.4 x 3.6 cm, question sessile bony exostosis. Other osseous bone lesions cannot be excluded. Appearances are atypical for changes related to trauma. Degenerative changes at the femoral tibial and patellofemoral joints with small osteophytes. No joint effusion. There may be medial soft tissue swelling. XR/XR knee RT 4V IMPRESSION: No acute fracture or dislocation. Osteopenia and degenerative changes. Indeterminate 2.4 x 3.6 cm broad-based bony excrescence projecting off the medial femoral condyle. Question sessile bony exostosis versus other bone lesion. Comparison with old outside exams if available recommended. Follow-up MRI with and without contrast recommended. Electronically signed by: Fariba Dietrich MD 10/28/2025 10:48 AM [facility]
--- OUTSIDE RECORDS SUMMARY | 2025-10-28 09:59 | XMS_ITS ---
Author Organization Unknown ENCOUNTERS Encounter Performer Location Date Diagnosis Diagnosis Status Pre Admit [address] [address] [id number] *Note: Encounters from your own facility or health system may be excluded. Allergies, Adverse Reactions, Alerts Allergen Type Severity Identification Date Medications Name Date Quantity Days Supplied GPI Number
[2025-10-28 11:31] LABS: Anion Gap 15 (12-20); Blood Urea Nitrogen 32 mg/dL (9-16); Calcium 9.8 mg/dL (8.4-10.2); Carbon Dioxide 24 mmol/L (22-29); Chloride 109 mmol/L (96-108); Estimated Glomerular Filt Rate > 60; Potassium 4.6 mmol/L (3.3-5.1); Sodium 143 mmol/L (135-145)
[2025-10-28 11:43] LABS: NT Pro B Type Natriuretic Pept 1795.9 pg/mL (<300)
== END 2025-10-28 09:55 | disposition home or self-care (01) ==
LOC: HO.LAB 09:54
PROVIDERS: PCP Nurse Practitioner Family; Referring Provider Nurse Practitioner Family; Visit Provider Nurse Practitioner Family
DX: M25.561 Pain in right knee (principal); S72.91XA Unspecified fracture of right femur, initial encounter for closed fracture; I50.9 Heart failure, unspecified
CPT/HCPCS: 36415; 73502; 73564; 80048; 83880

== ENCOUNTER → 2025-10-28 10:00 | Outpatient (BNV) | payer MEDICAID, SELFPAY | PROVIDERS: PCP Nurse Practitioner Family; Referring Provider Nurse Practitioner Family; Visit Provider Radiology Diagnostic Radiology | DX: M17.11 Unilateral primary osteoarthritis, right knee (principal); M85.862 Other specified disorders of bone density and structure, left lower leg; S72.91XA Unspecified fracture of right femur, initial encounter for closed fracture | CPT/HCPCS: 73502; 73564 ==